=== PATIENT | female | born 1970 | race Caucasian/White ===

== ENCOUNTER 2021-09-06 09:40 | Emergency (ER) | payer BC, SELFPAY ==
[2021-09-06 09:50] VITALS: BP 132/83; PULSE 79; RESP 20; TEMP 36.7; O2SAT 100
--- NOTE | 2021-09-06 10:13 | ED.URI ---
HPI - URI/Sore Throat General Chief Complaint: Upper Respiratory Infection Stated Complaint: Sore Throat/Cough/Ear Pain Time Seen by Provider: 09/06/21 10:14 Source: patient and RN notes reviewed Mode of arrival: ambulatory Limitations: no limitations History of Present Illness HPI Narrative: 51-year-old female presented for complaint of posterior throat pain, left ear pain and occasional cough and slight wheezing x3 days. She has been taking Tylenol Cold for symptoms. History of asthma and allergies. She is not boosted for COVID. No flu vaccine. Denies chest pain, shortness of breath, nausea, vomiting, diarrhea, fever or chills. Denies sick contacts. MD elicited complaint: cough Related Data Home Medications Medication Instructions Recorded Confirmed albuterol 90 mcg INHALATION Q4H PRN 09/06/21 09/06/21 trazodone 50 mg PO HS 09/06/21 09/06/21 Allergies Allergy/AdvReac Type Severity Reaction Status Date / Time No Known Allergies Allergy Verified 09/06/21 09:58 Review of Systems Review of Systems: CONSTITUTIONAL: Endorses malaise, denies chills, sweats, fever EYES: Denies visual changes, redness, or discharge ENT: Reports rhinorrhea, congestion, otalgia, sore throat CARDIOVASCULAR: Denies chest pain, palpitations, edema RESPIRATORY: Reports cough, post nasal drainage. Denies dyspnea GASTROINTESTINAL: Denies abdominal pain, nausea, vomiting, diarrhea SKIN: Denies rash or itching MUSCULOSKELETAL: Denies myalgia NEUROLOGIC: Denies headache Exam Narrative: GENERAL: Ill-appearing, nontoxic HEAD: Normocephalic EYES: PERRLA, conjunctivae clear ENT: Mucous membranes moist. TM pearly vásquez with dull light reflex bilaterally; no tragal tenderness. Oropharynx erythematous without lesions or exudate, hoarseness noted, no drooling, no trismus, uvula midline. No tripod positioning, muffled voice, soft palate or pharyngeal wall bulging NECK: Supple. No lymphadenopathy CHEST: Clear to auscultation, breath sounds equal. No wheezing, rhonchi, rales, or stridor. No respiratory distress, speaks in full sentences. HEART: Regular rate and rhythm. No murmur heard. SKIN: Warm, dry, no rash. NEURO: Alert and oriented x3. PSYCH: Normal mood and affect Course Course Emergency Course: Patient is aware of diagnosis, understands and agrees to treatment plan. Anticipatory guidance given. Patient agrees to follow-up as directed and is aware of reasons to seek care at the emergency department. Portions of this record may have been created with voice recognition software Level of Care: Express Care Visit Vital Signs Vital signs: Vital Signs Temperature 98.0 F 09/06/21 09:50 Pulse Rate 79 09/06/21 09:50 Respiratory Rate 20 09/06/21 09:50 Blood Pressure 132/83 09/06/21 09:50 Pulse Oximetry 100 09/06/21 09:50 Temperature 98.0 F 09/06/21 09:50 Pulse Rate 79 09/06/21 09:50 Respiratory Rate 20 09/06/21 09:50 Blood Pressure 132/83 09/06/21 09:50 Pulse Oximetry 100 09/06/21 09:50 reviewed MDM - URI/Sore Throat MDM Narrative Medical decision making narrative: strep and covid testing negative. Pt will treat symptomatically and f/u with pcp. Differential Diagnosis Differential diagnosis: Likely upper respiratory infection, sinusitis and viral infection Lab Data Attestation: I reviewed the patient's lab results. Labs: Strep Screen Presumptive Negative *(Reference Range: Negative)* Discharge Plan Discharge Clinical Impression: Upper respiratory infection Qualifiers: URI type: unspecified URI Qualified Code(s): J06.9 - Acute upper respiratory infection, unspecified Patient Disposition: Home, Self-Care Condition: Stable Instructions: Antibiotic Form, Upper Respiratory Infection (ED), Allergies (ED) Additional Instructions: Recommend Flonase spray, saline spray, and Zyrtec Over the counter cough syrup may cause drowsiness; av
== END 2021-09-06 10:52 | disposition home or self-care (01) ==
PROVIDERS: Emergency Provider Nurse Practitioner Family; PCP Registered Nurse
DX: J06.9 Acute upper respiratory infection, unspecified (principal); Z20.822 Contact with and (suspected) exposure to COVID-19
CPT/HCPCS: 87081; 87426; 87880; 99213; C9803; G0463

== ENCOUNTER → 2023-04-23 13:23 | Outpatient (CLI) | payer BC, SELFPAY ==
--- NOTE | ~2023-04-23 | MM_ITS ---
EXAMINATION: MM screening [facility] BI w rhoda HISTORY: Screening TECHNIQUE: Craniocaudal and mediolateral oblique 3-D tomosynthesis images were obtained and synthetic 2-D images were generated. CAD analysis was submitted and interpreted. COMPARISON: No prior mammogram is available for comparison at this institution. BREAST PARENCHYMAL COMPOSITION: The breasts are almost entirely fatty. FINDINGS: There is no evidence of suspicious mass, calcification, or architectural distortion to sugg est malignancy in either breast. There has been no suspicious interval change. IMPRESSION: 1. No mammographic evidence of malignancy. 2. Recommend routine screening mammography in one year. BI-RADS Category 1: Negative Reviewed, dictated and finalized at location A. [employer]
== END ==
PROVIDERS: PCP Registered Nurse; Visit Provider Registered Nurse
DX: Z12.31 Encounter for screening mammogram for malignant neoplasm of breast (principal)
CPT/HCPCS: 77063; 77067

== ENCOUNTER 2024-06-17 13:01 | Emergency (ER) | payer BC, SELFPAY ==
[2024-06-17 14:04] VITALS: BP 138/86; PULSE 88; RESP 20; TEMP 37.3; O2SAT 100
--- NOTE | 2024-06-17 16:05 | ED_ITS ---
HPI - General Adult General Chief complaint: Upper Respiratory Infection Stated complaint: Ear Pain/Sore Throat Source: patient Mode of arrival: ambulatory Limitations: no limitations History of Present Illness HPI narrative: Patient presents for evaluation of sore throat since yesterday. She also has bilateral earache. She states she feels like hearing in her left ear is going through a tunnel. She states she feels a constriction in her throat when laying flat. She does have KASSIE and uses her CPAP. Last night she slept in a recliner. She denies any fever, chills, nausea, vomiting, cough or SOB. No recent sick contacts to her knowledge. She does not smoke. Related Data Home Medications ?Medication ?Instructions ?Recorded ?Confirmed ?Last Taken ?Type albuterol 90 mcg/actuation aerosol 90 mcg inhalation Q4H PRN Dyspnea 09/06/21 09/06/21 Unknown History inhaler trazodone 50 mg tablet 50 mg PO HS 09/06/21 09/06/21 Unknown History atorvastatin 10 mg tablet mg 06/17/24 Unknown History Allergies Allergy/AdvReac Type Severity Reaction Status Date / Time No Known Allergies Allergy Verified 06/17/24 14:37 Review of Systems Review of Systems: CONSTITUTIONAL: Denies fever, chills, or sweats. EYES: Denies visual changes, redness, or discharge. ENT: Reports sore throat and bilateral earache. Reports muffled hearing on the left. Denies tinnitus or drainage from the ear. CARDIOVASCULAR: Denies chest pain, palpitations, or edema. RESPIRATORY: Denies cough or dyspnea. GASTROINTESTINAL: Denies abdominal pain, nausea, vomiting, or diarrhea. GENITOURINARY: Denies dysuria or hematuria. SKIN: Denies rash or itching. MUSCULOSKELETAL: Denies back pain, joint pain, or myalgia. NEUROLOGIC: Denies headache, numbness, dizziness, or weakness. PSYCHIATRIC: Denies anxiety or depression. [facility] Past Medical History Medical History Hyperlipidemia Sleep apnea Surgical History Surgical History No pertinent past surgical history Family History Family History Mother Family history non-contributory Social History Social History Smoking status: Never smoker Substance use: never Living arrangements: with family Gender identity (if verbalized by the patient): Female Sexual Orientation (if Verbalized by the Patient): Straight or Heterosexual Spiritual care concerns: No Exam Narrative: GENERAL: Well-appearing, well-nourished, and in no acute distress. HEAD: Normocephalic, atraumatic. EYES: PERRLA and EOMI. ENT: Nares clear, no rhinorrhea or epistaxis. Mucous membranes moist. Posterior pharyngeal erythema. No exudate. Uvula is midline. Bilateral t ympanic membrane erythema. NECK: Supple. No adenopathy or masses. No carotid bruits or JVD CHEST: Clear to auscultation. No respiratory distress. No wheezes rales or rhonchi HEART: Regular rate and rhythm. No murmur heard. Normal peripheral pulses. ABDOMEN: Soft, nontender, nondistended, normal active bowel sounds. EXTREMITIES: Normal range of motion. No edema. SKIN: Warm, dry, no rash. NEURO: No focal deficits. Alert and oriented x3. PSYCH: Normal mood and affect. Course Course Emergency Course: This is a 54-year-old female who presented for evaluation of sick symptoms. Rapid strep negative. Through shared decision making opted to proceed with antibiotic therapy. Will discharge with Augmentin. She lives at home with her so he can monitor her closely. She will sleep in a recliner for the time being. She should follow-up with her primary provider and go to the ER for worsening symptoms. Patient in agreement with plan of care. Level of Care: Express Care Visit Vital Signs Vital signs: Vital Signs Temperature 37.3 C 06/17/24 14:04 Pulse Rate 88 06/17/24 14:04 Respiratory Rate 20 06/17/24 14:04 Blood Pressure 138/86 06/17/24 14:04 Pulse Oximetry 100 06/17/24 14:04 Oxygen Delivery Room Air 06/17/24 14:04 Temperature 37.3 C 06/17/24 14:04 Pulse Rate 88 06/17/24 14:04 Respiratory Rate 20 06/17/24 14:04 Blood Pressure 138/86 06/17/24 14:04 Pulse Oximetry 100 06/17/24 14:04 Oxygen Delivery Room Air 06/17/24 14:04 Medical Decision Making Vital Signs Vital Signs: Vital Signs Temperature 37.3 C 06/17/24 14:04 Pulse Rate 88 06/17/24 14:04 Respiratory Rate 20 06/17/24 14:04 Blood Pressure 138/86 06/17/24 14:04 Pulse Oximetry 100 06/17/24 14:04 Oxygen Delivery Room Air 06/17/24 14:04 Temperature 37.3 C 06/17/24 14:04 Pulse Rate 88 06/17/24 14:04 Respiratory Rate 20 06/17/24 14:04 Blood Pressure 138/86 06/17/24 14:04 Pulse Oximetry 100 06/17/24 14:04 Oxygen Delivery Room Air 06/17/24 14:04 Lab Data Labs: Lab Results 06/17/24 Range/Units 14:12 POC Grp A Strep Screen Pending Discharge Plan Discharge Clinical Impression: Pharyngitis Patient Disposition: Home, Self-Care Condition: Stable Instructions: Antibiotic Form, Pharyngitis (ED) Patient Language: Citizen Of [place] Prescriptions: New amoxicillin-pot clavulanate 875-125 mg tablet 1 tablet PO Q12H Qty: 20 0RF No Action trazodone 50 mg Tablet 50 mg PO HS albuterol 90 mcg/actuation Aerosol 90 mcg INHALATION Q4H PRN (Reason: Dyspnea) atorvastatin 10 mg tablet Follow-up/Referrals: Radha,JOAQUIN Donnelly [Primary Care Provider] - Time of Disposition: 16:04
[2024-06-17 16:06] LABS: EDSTREPNEGPOS1 Negative (Negative)
== END 2024-06-17 16:05 | disposition home or self-care (01) ==
PROVIDERS: Emergency Provider Nurse Practitioner; PCP Registered Nurse
DX: J02.9 Acute pharyngitis, unspecified (principal); E78.5 Hyperlipidemia, unspecified
CPT/HCPCS: 87081; 87880; 99213; G0463